=== PATIENT | male | born 1995 | race Caucasian/White ===

== ENCOUNTER 2019-01-03 22:26 | Emergency (ER) | payer OTHER ==
--- NOTE | 2019-01-03 23:12 | ED ---
- HPI Summary HPI Summary: 23-year-old presents with body fluid exposure. He works for [employer]. He was trying to excoriate a semiresponsive combative patient that started to cough up blood and got into his eye. It was unknown that the person they were helping blood in his mouth at the time incident occurred. - History of Current Complaint Chief Complaint: EDExposureBodyFluid Stated Complaint: BODILY FLUID EXPOSURE PER PT Time Seen by Provider: 01/03/19 22:55 PMH/Surg Hx/FS Hx/Imm Hx Endocrine/Hematology History: Denies: Hx Anticoagulant Therapy Respiratory History: Reports: Hx Asthma - less often now Infectious Disease History: No Infectious Disease History: Denies: Hx Clostridium Difficile, Hx Hepatitis, Hx Human Immunodeficiency Virus (HIV), Hx of Known/Suspected MRSA, Hx Shingles, Hx Tuberculosis, Hx Known/ Suspected VRE, Hx Known/Suspected VRSA, History Other Infectious Disease, Traveled Outside the in Last 30 Days - Social History Alcohol Use: None Substance Use Type: Reports: None Smoking Status (MU): Never Smoked Tobacco Review of Systems Negative: Fever Positive: Other - blood in eye Negative: Chest Pain Negative: Shortness Of Breath All Other Systems Reviewed And Are Negative: Yes Physical Exam Triage Information Reviewed: Yes Vital Signs On Initial Exam: Initial Vitals Temp Pulse Resp BP Pulse Ox 97.3 F 92 16 160/86 96 01/03/19 22:30 01/03/19 22:30 01/03/19 22:30 01/03/19 22:30 01/03/19 22:30 Vital Signs Reviewed: Yes Appearance: Positive: Well-Appearing Skin: Positive: Warm, Dry Head/Face: Positive: Normal Head/Face Inspection Eyes: Positive: Normal, EOMI, ANITRA, Conjunctiva Clear ENT: Positive: Pharynx normal Respiratory/Lung Sounds: Positive: Clear to Auscultation, Breath Sounds Present Cardiovascular: Positive: Normal, RRR Musculoskeletal: Positive: Normal Neurological: Positive: Normal Psychiatric: Positive: Normal Diagnostics - Vital Signs Vital Signs Temp Pulse Resp BP Pulse Ox 01/03/19 22:30 97.3 F 92 16 160/86 96 - Laboratory Result Diagrams: 01/03/19 23:20 Lab Statement: Any lab studies that have been ordered have been reviewed, and results considered in the medical decision making process. [place] Course/Dx - Course Course Of Treatment: 23-year-old presents with body fluid exposure. He works for [employer]. He was trying to excoriate a semiresponsive combative patient that started to cough up blood and got into his eye. It was unknown that the person they were helping blood in his mouth at the time incident occurred. On arrival in ED patient irrigated out eye out. Has history asthma. No other injury. source patient . On exam normal exam. source patient hiv neg. told follow up with occupational health. patient understand and agrees with plan. - Diagnoses Provider Diagnoses: Exposure to blood or body fluid Discharge - Sign-Out/Discharge Documenting (check all that apply): Patient Departure Patient Received Moderate/Deep Sedation with Procedure: No - Discharge Plan Condition: Good Disposition: HOME Referrals: Ruiz Oliva MD [Medical Doctor] - Additional Instructions: Follow up with occupational health, will need repeat lab work in 6 months Return to ED if develop any new or worsening symptoms - Billing Disposition and Condition Condition: GOOD Disposition: Home
[2019-01-03 23:51] LABS: Albumin 4.2 g/dL (3.2-5.2); Albumin/Globulin Ratio 1.8 (1-3); BUN/Creatinine Ratio 18.7 (8-20); Calcium 8.8 mg/dL (8.6-10.3); EGFR African American 87.5 (>60); EGFR Non-African American 72.3 (>60); Globulin 2.3 g/dL (2-4); Total Bilirubin 0.3 mg/dL (0.2-1.0); Total Protein 6.5 g/dL (6.4-8.9)
[2019-01-04 00:09] LABS: Rapid HIV 1 Nonreactive (Nonreactive)
[2019-01-04 00:41] VITALS: BP 128/78
[2019-01-04 09:40] LABS: Hepatitis B Surface Antigen Nonreactive (Nonreactive)
[2019-01-04 10:06] LABS: Hepatitis C Antibody Nonreactive (Nonreactive)
[2019-01-04 12:49] LABS: Hepatitis B Surface AB Not Immune (Immune)
== END 2019-01-04 00:20 | disposition home or self-care (01) ==
LOC: ED 22:26
DX: Z77.21 Contact with and (suspected) exposure to potentially hazardous body fluids (principal)
CPT/HCPCS: 36415; 80053; 86703; 86706; 86803; 87340; 99282